=== PATIENT | female | born 1985 | race Caucasian/White ===

== ENCOUNTER 2018-09-01 18:52 | Emergency (ER) | payer BC, SELFPAY ==
[2018-09-01 18:53] VITALS: BP 133/71; PULSE 109; RESP 15; TEMP 36.9; O2SAT 98; BMI 26.5
--- NOTE | 2018-09-01 19:24 | EKG12_ITS ---
Test Reason : WEAKNESS Blood Pressure : / mmHG Vent. Rate : 088 BPM Atrial Rate : 088 BPM P-R Int : 136 ms QRS Dur : 100 ms QT Int : 338 ms P-R-T Axes : 058 046 038 degrees QTc Int : 408 ms Normal sinus rhythm Incomplete right bundle branch block Borderline ECG Confirmed by DAWN POP, TIGRE ([id number]), editorial director NICHOLAS ALCANTARA ([id number]) on 09/04/2018 1:31:48 PM Referred By: GISELA Confirmed By:TIGRE SEYMOUR MD
--- NOTE | 2018-09-01 19:26 | ED.VISSUMM ---
- ER Visit Summary Date of Service: 09/01/18 Chief Complaint: Dizziness and lightheadedness History of Present Illness: The patient is a 33 F who presents for 3 weeks of dizziness and lightheadedness, gradually worsening. Patient states that she feels more dizzy and lightheaded during the day then she feels normal. She has had increased fatigue during the days despite sleeping all night. She is feeling diffuse leg and arm weakness today and has been having hot flushes although she normally is cold natured. She also noted bruising on her right leg moving all the way up to the hip. She is on iron and vitamin D supplementation. Today she is having left shoulder pain. She is had a tubal ligation and denies . She is currently being worked up for POTS but states the symptoms are not consistent with her prior symptoms where she would have near syncope. She denies any other medical problems. She denies any history of thyroid disorder. She denies being on a natural herbal supplements. Physical Examination: Vital signs: afebrile, hemodynamically stable, no hypoxia on room air General: well nourished, well developed, in no distress Skin: warm, dry, no rash, no pallor, scattered bruises on the lateral right lower leg, one on the calf, a few on the lateral thigh and one near the hip. HEENT: normocephalic and atraumatic; PERRL, EOMI, moist mucous membranes, neck is supple, no lymphadenopathy Cardiovascular: regular rate and rhythm without murmurs, no peripheral edema, 2+ pulses all distal extremities Respiratory: No increased work of breathing, lungs are clear to auscultation bilaterally, no rales, rhonchi or wheezing Abdominal: Abdomen is soft, nontender with normoactive bowel sounds, no guarding or rebound, no masses MSK: Moves all extremities, no deformities, normal strength Neuro: Awake and alert, oriented ?4. No facial droop, sensation and motor function intact and symmetric Test Results: Abnormal Lab Results 09/01/18 09/01/18 09/01/18 19:35 19:35 19:35 WBC 8.3 RBC 4.83 Hgb 14.6 Hct 43.2 MCV 89.4 MCH 30.2 MCHC 33.8 RDW 13.2 RDW Differential 43.4 Plt Count 211 MPV 10.3 Immature Gran % (Auto) 0.100 Neut % (Auto) 71.2 H Lymph % (Auto) 21.4 [place] % (Auto) 6.4 Eos % (Auto) 0.7 Baso % (Auto) 0.2 Absolute Neuts (auto) 5.9 Absolute Lymphs (auto) 1.78 Total Counted Not Reportable Sodium 137 Potassium 3.5 Chloride 105 Carbon Dioxide 29.0 Anion Gap 3 L BUN 10 Creatinine 0.79 Estim Creat Clear Calc 91.99 Est GFR (MDRD) Af Amer 109 Est GFR (MDRD) Non-Af 90 BUN/Creatinine Ratio 12.7 Glucose 100 Calcium 9.1 Total Bilirubin 0.40 AST 16 ALT 24 Alkaline Phosphatase 70 Total Protein 7.9 Albumin 4.2 Globulin 3.7 Albumin/Globulin Ratio 1.1 TSH 1.29 Serum , Qual NEGATIVE Monoscreen 09/01/18 19:35 WBC RBC Hgb Hct MCV MCH MCHC RDW RDW Differential Plt Count MPV Immature Gran % (Auto) Neut % (Auto) Lymph % (Auto) [place] % (Auto) Eos % (Auto) Baso % (Auto) Absolute Neuts (auto) Absolute Lymphs (auto) Total Counted Sodium Potassium Chloride Carbon Dioxide Anion Gap BUN Creatinine Estim Creat Clear Calc Est GFR (MDRD) Af Amer Est GFR (MDRD) Non-Af BUN/Creatinine Ratio Glucose Calcium Total Bilirubin AST ALT Alkaline Phosphatase Total Protein Albumin Globulin Albumin/Globulin Ratio TSH Serum , Qual Monoscreen Negative Medications Given Discontinued Medications Sodium Chloride () 1,000 mls @ 1,000 mls/hr IV .Q1H ONE Stop: 09/01/18 20:23 Last Admin: 09/01/18 19:50 Dose: 1,000 mls/hr Documented by: [facility] Emergency Department Course and Treatment: Patient presents with a broad constellation of symptoms, mainly involving fatigue, weakness and dizziness. Work-up was performed to evaluate for any obvious underlying causes. EKG showed a sinus rhythm no ischemic changes or ectopy. CBC showed no significant leukocytosis or anemia. CMP showed normal hepatic, renal and electrolytes. Monospot was checked and was negative. negative. TSH was within normal limits. No findings on patient's work-up to indicate an emergent cause of her symptoms at this time. Patient is hemodynamically stable and afebrile. She received fluids in the emergency department and felt somewhat better afterwards. She is to follow-up with her primary care doctor for further work-up of her multiple symptoms. Treatment Plan: [] Disposition: [] Impression: Fatigue of unknown cause, dizziness of unknown cause This note was generated with [employer] dictation software. It may contain incorrect words, spelling, and punctuation that were not noted in review of the chart prior to signing ED Disposition - Plan for ED Patient: Disposition: Home or Assisted Living Instructions: DIZZINESS, Unk Cause, WEAKNESS, Unk Cause Referrals: Catie Elmore, [Primary Care Provider] - 3-5 Days Additional Instructions: Drink plenty of fluids to stay well-hydrated. Please follow-up with your doctor to continue your work-up for POTS and for another evaluation of the symptoms you are having today. If you have any worsening of your condition or any new concerning symptoms, please return immediately to the emergency department for another evaluation.
[2018-09-01 19:43] LABS: Absolute Lymphocyte Count 1.78 X10^3/ul (0.83-4.51); Absolute Neutrophil Count 5.9 X10^3/uL (2.0-7.7); Basophil# 0.02 X10^3/uL; Basophil% 0.2 % (0-1); Eosinophil# 0.06 X10^3/uL; Eosinophils% 0.7 % (0-5); Hematocrit 43.2 % (37-47); Hemoglobin 14.6 g/dl (12.0-15.0); Lymphocyte # 1.78 X10^3/ul (4.0); Lymphocyte % 21.4 % (19-41); Mean Corp Hgb Conc 33.8 g/gl (32-36); Mean Corpuscular Hgb 30.2 pg (27.0-32.0); Mean Corpuscular Volume 89.4 fL (81-99); Mean Platelet Vol. 10.3 fl (6.2-12.0); Monocyte# 0.53 X10^3/uL; Monocyte% 6.4 % (0-10); Neutrophil # 5.91 X10^3/uL (2.7-7.7); Neutrophil % 71.2 % (47-70); POSITIVE COUNT NO; POSITIVE DIFFERENTIAL NO; POSITIVE MORPHOLOGY NO; Platelet Count 211 K/mm3 (150-450); RBC Distribution Width CV 13.2 % (11.6-14.6); RBC Distribution Width SD 43.4 fl (35.1-43.9); Red Blood Count 4.83 M/mm3 (4.2-5.4); White Blood Count 8.3 K/mm3 (4.4-11.0)
[2018-09-01 19:50] VITALS: BP 111/64; BP 113/68; BP 119/70; PULSE 87; PULSE 91
[2018-09-01] MEDS: 0.9% Normal Saline 1,000 ML 1000 ML IV (19:50)
[2018-09-01 20:00] LABS: Internal QC Validated? YES +Cl - CLEAR BKGD; Monotest Negative (Negative)
[2018-09-01 20:01] LABS: Internal QC Validated? YES +Cl - CLEAR BKGD; Pregnancy, Serum, hCG Quali. NEGATIVE Negative
[2018-09-01 20:07] LABS: ALB/GLOB Ratio 1.1 RATIO (0.9-2.4); AST(SGOT) 16 U/L (15-37); Alanine Aminotransfer ALT/SGPT 24 U/L (13-56); Albumin, Serum 4.2 g/dL (3.2-5.0); Alkaline Phosphatase 70 U/L (45-117); Anion Gap 3 (5-15); BUN 10 mg/dL (7-18); BUN/Creat Ratio 12.7 RATIO (10-20); Calcium,Total 9.1 mg/dL (8.5-10.1); Chloride 105 mmol/L (98-107); Creatinine, Serum 0.79 mg/dL (0.55-1.02); EST Glomerular Filtration Rate 90 mL/min (>60); Est Glom Filt Rate - Afr Amer 109 mL/min (>60); Estimated Creatinine Clearance 91.99 ml/min; Globulin 3.7 g/dL (2.2-4.2); Glucose 100 mg/dL (74-106); Potassium 3.5 mmol/L (3.5-5.1); Protein, Total 7.9 g/dL (6.4-8.2); Sodium Level 137 mmol/L (136-145); Thyroid Stim Hormone (TSH) 1.29 uIU/mL (0.358-3.74)
[2018-09-01 21:38] VITALS: BP 124/71; PULSE 86; RESP 16; O2SAT 100
--- NOTE | 2018-09-01 21:39 | ED.RN ---
THIS NURSE REVIEWED D/C INSTRUCTIONS WITH PT. PT VERBALIZED UNDERSTANDING OF INSTRUCTIONS. IV D/C. IV CATHETER INTACT. PT TOLERATED WELL. PT DENIES FURTHER NEEDS OR QUESTIONS AT THIS TIME.
== END 2018-09-01 21:40 | disposition home or self-care (01) ==
PROVIDERS: Emergency Provider Emergency Medicine; Family Provider Internal Medicine; PCP Internal Medicine
DX: R42 Dizziness and giddiness (principal); R53.83 Other fatigue
CPT/HCPCS: 80053; 84443; 84703; 85025; 86308; 93005; 96360; 99284; J7030; A4216

== ENCOUNTER 2019-04-12 22:07 | Emergency (ER) | payer BC, SELFPAY ==
[2019-04-12 22:08] VITALS: BP 125/74; PULSE 68; RESP 16; TEMP 36.6; O2SAT 98; BMI 26.2
[2019-04-12 22:25] VITALS: BP 113/74; PULSE 86; RESP 16; O2SAT 98
[2019-04-12 22:27] VITALS: O2SAT 98
--- NOTE | 2019-04-12 22:51 | EKG12_ITS ---
Test Reason : SOB Blood Pressure : / mmHG Vent. Rate : 081 BPM Atrial Rate : 081 BPM P-R Int : 134 ms QRS Dur : 102 ms QT Int : 342 ms P-R-T Axes : 056 048 032 degrees QTc Int : 397 ms Normal sinus rhythm Normal ECG Confirmed by IGLESIA POP, SEEMA ([id number]), loan expeditor CECY SANCHEZ ([id number] on 04/16/2019 10:32:21 AM Referred By: SATISH Confirmed By:PAUL PAREKH MD
--- NOTE | 2019-04-12 22:51 | RAD_ITS ---
STUDY: X-RAY CHEST REASON FOR EXAM: Female, 33 years old. C/o heart racing and chest discomfort since Tuesday TECHNIQUE: PA and lateral views of the chest. COMPARISON: None. FINDINGS: The lungs are clear and expanded. There is no demonstrated pleural abnormality. Normal size heart. Normal mediastinum and shandra. Normal visualized pulmonary arteries. Normal visualized aortic arch and descending thoracic aorta. Normal visualized thoracic spine. Normal visualized ribs, clavicles, and shoulders. There is no demonstrated abnormality of the visualized soft tissue structures of the upper abdomen. RAD/Chest PA and Lateral IMPRESSION: Normal x-ray examination of the chest. Electronically Signed: Jasmyne Ingram MD at 0:05 EST , Service support ,
[2019-04-12 23:51] LABS: Absolute Lymphocyte Count 2.26 X10^3/uL (0.83-4.51); Absolute Neutrophil Count 4.9 X10^3/uL (2.0-7.7); Basophil# 0.04 X10^3/uL; Basophil% 0.5 % (0-1); Eosinophil# 0.13 X10^3/uL; Eosinophils% 1.6 % (0-5); Hematocrit 40.8 % (37-47); Hemoglobin 13.6 g/dL (12.0-15.0); Lymphocyte # 2.26 X10^3/ul (4.0); Lymphocyte % 28.3 % (19-41); Mean Corp Hgb Conc 33.3 g/dL (32-36); Mean Corpuscular Hgb 30.4 pg (27.0-32.0); Mean Corpuscular Volume 91.1 fL (81-99); Mean Platelet Vol. 10.4 fl (6.2-12.0); Monocyte# 0.62 X10^3/uL; Monocyte% 7.8 % (0-10); NRBC Flagged by Analyzer 0 % (0-5); Neutrophil # 4.91 X10^3/uL (2.7-7.7); Neutrophil % 61.5 % (47-70); Platelet Count 183 K/mm3 (150-450); RBC Distribution Width CV 12.2 % (11.6-14.6); RBC Distribution Width SD 40.2 fl (35.1-43.9); Red Blood Count 4.48 M/mm3 (4.2-5.4)
[2019-04-13] LABS: Internal QC Validated? YES +Cl - CLEAR BKGD; Pregnancy, Serum, hCG Quali. NEGATIVE Negative
[2019-04-13 00:06] LABS: D-Dimer Quantitative (DVT/PE) < 0.27 FEU/ug/m (0.27-0.49)
[2019-04-13 00:13] VITALS: BP 113/69; PULSE 79; RESP 15; O2SAT 98
--- NOTE | 2019-04-13 00:22 | ED.VISSUMM ---
- ER Visit Summary Date of Service: 04/13/19 Chief Complaint: Tachycardia, shortness of breath, palpitations] History of Present Illness: The patient is a 33 F [presents to the emergency department with complaint of a racing heart and some shortness of breath that is been ongoing for the last 3 days. Patient states that she is noted heart rates as high as 168 today. Heart rate was in the 140s yesterday. Patient states that her chest, feels sore and scratchy like when he had a cold. Patient has tried antacids to relieve the discomfort without success. Today she is felt very fatigued. Patient states that she had similar episodes of tachycardia 5 or 6 years ago and was evaluated by fixed wing aircraft flight mechanic at that time and it was thought that she may have SVT. Patient states that when she gets them fast heart rates she splashes cold water on her face and takes deep breaths. The tachycardia typically lasts only a short time. Patient has never had any EPS type studies. She states that she did wear a Holter monitor years ago but it was not able to capture any abnormalities. Patient had an echo 5 years ago that was normal. No thyroid history.] Physical Examination: [HEENT-PERRLA, EOMI. Cranial nerves II through XII grossly intact. TMs clear. Mucous membranes moist. No adenopathy. Cardiovascular-regular rate and rhythm without murmur or ectopy Lungs-clear to auscultation, chest wall stable without crepitus or subcu emphysema Abdomen-normoactive bowel sounds, soft, nontender, no rebound or rigidity, no peritoneal signs. Extremities-intact ?4, normal range of motion, normal pulses, atraumatic] Test Results: [EKG obtained arrival shows sinus rhythm with a ventricular rate of 81 bpm with no acute ST segment changes. CBC with differential was normal. D-dimer was less than 0.27. hCG was negative.] Chemistries were unremarkable. TSH was slightly elevated 4.38. Emergency Department Course and Treatment: [Patient will have a Holter monitor placed. Patient was observed on cardiac cath lab technologist here and had no dysrhythmia issues.] Treatment Plan: [Follow-up with cardiology vehicle fuel systems converter in 3 to 5 days. Patient will have a 48-hour Holter monitor placed.] Disposition: [Discharged home in stable condition] Impression: [Tachycardia by history Palpitations] This note was generated with [employer] software. It may contain incorrect words, spelling, and punctuation that were not noted in review of the chart prior to signing ED Disposition - Plan for ED Patient: Disposition: Acute Care Hospital [facility] Referrals: Catie Elmore DO [Primary Care Provider] -
[2019-04-13 00:37] LABS: Anion Gap 2 (5-15); BUN 7 mg/dL (7-18); Calcium,Total 9.2 mg/dL (8.5-10.1); Chloride 109 mmol/L (98-107); Creatinine, Serum 0.77 mg/dL (0.55-1.02); EST Glomerular Filtration Rate 91 mL/min (>60); Est Glom Filt Rate - Afr Amer 110 mL/min (>60); Estimated Creatinine Clearance 94.38 ml/min; Glucose 83 mg/dL (74-106); Potassium 3.6 mmol/L (3.5-5.1); Sodium Level 141 mmol/L (136-145); Thyroid Stim Hormone (TSH) 4.38 uIU/mL (0.358-3.74)
--- NOTE | 2019-04-13 00:46 | DCINST.ED_ITS ---
ED Disposition - Plan for ED Patient: Disposition: Acute Care Hospital [facility] Instructions: Palpitations, Pat (P.A.T.) Referrals: Catie Elmore DO [Primary Care Provider] - Soy Wilcox MD [STAFF PHYSICIAN] - 3-5 Days
--- NOTE | 2019-04-13 00:46 | ED.DEP ---
ED Disposition - Plan for ED Patient: Disposition: Acute Care Hospital [facility] Instructions: Palpitations, Pat (P.A.T.) Referrals: Catie Elmore DO [Primary Care Provider] - Soy Wilcox MD [STAFF PHYSICIAN] - 3-5 Days
[2019-04-13 01:08] VITALS: BP 115/75; PULSE 86; RESP 15
== END 2019-04-13 01:09 | disposition short-term general hospital (02) ==
PROVIDERS: Emergency Provider Emergency Medicine; PCP Internal Medicine
DX: R00.0 Tachycardia, unspecified (principal); R00.2 Palpitations
CPT/HCPCS: 71046; 80048; 84443; 84484; 84703; 85025; 85379; 93005; 99284

== ENCOUNTER → 2019-04-13 | Outpatient (CLI) | payer BC, SELFPAY ==
[2019-04-12 22:08] VITALS: BMI 26.2
== END | disposition home or self-care (01) ==
LOC: ED 00:56 → PSN 01:08
PROVIDERS: PCP Internal Medicine; Referring Provider Emergency Medicine; Visit Provider Emergency Medicine
DX: R00.2 Palpitations (principal)
CPT/HCPCS: 93225; 93226

== ENCOUNTER → 2019-05-09 10:08 | Outpatient (CLI) | payer BC, SELFPAY ==
[2019-05-09 09:29] VITALS: BMI 25.9
[2019-05-09 11:00] LABS: Ferritin 6 ng/mL (8-252); Iron 79 ug/dL (50-170); Iron Binding Capacity,Total 318 ug/dL (250-450); PERCENT IRON SATURATION 24.8 % (15.0-55.0)
== END ==
PROVIDERS: PCP Internal Medicine; Referring Provider Internal Medicine Cardiovascular Disease; Visit Provider Internal Medicine Cardiovascular Disease
DX: D64.9 Anemia, unspecified (principal)
CPT/HCPCS: 36415; 82728; 83540; 83550

== ENCOUNTER 2020-09-10 17:31 | Emergency (ER) | payer BC, SELFPAY ==
[2019-05-09 09:29] VITALS: BMI 25.9
[2020-09-10 17:31] VITALS: BP 119/66; PULSE 91; RESP 16; TEMP 36.6; O2SAT 98; BMI 27.3
--- NOTE | 2020-09-10 18:25 | US_ITS ---
HISTORY: rt calf pain x 2 days EXAMINATION: US Venous Duplex LE Unilat / Limited: TECHNIQUE: Fihser scale, pulse wave, and color flow Doppler imaging was performed of the lower extremity venous system. The right greater saphenous, common femoral, femoral, popliteal, peroneal and posterior tibial veins were interrogated. COMPARISON: None FINDINGS: # of images incl. paperwork: 17 There is normal compression, augmentation, and color flow signal throughout the visualized deep lower extremity veins. US/Venous Duplex Imag/Limited/Uni IMPRESSION: No sonographic evidence of deep venous thrombosis. at 1935 Reported and signed by: Cy Ross MD Electronically Signed: Cy Ross MD at 19:34 EDT Tel , Service support ,
--- NOTE | 2020-09-10 18:47 | EX.ED.DYSGE1 ---
HPI History of Present Illness Chief Complaint: Lower Extremity Injury Narrative Narrative: Patient presents with 1 day history of right calf pain. She has no chest pain or shortness of breath. No recent fever or chills. No recent travel history. She is denying any kind of trauma. No other DVT or PE risk factors. [facility] Medical History (Updated 09/10/20 @ 18:15 by Marci Busch) History of paroxysmal supraventricular tachycardia Home Medications NK 09/10/20 [History Last Taken Unknown] Allergy/AdvReac Type Severity Reaction Status Date / Time Penicillins [PCN] Allergy Anaphylaxis Verified 09/10/20 17:31 Family History Father Diabetes Essential (primary) hypertension Grandfather COPD (chronic obstructive pulmonary disease) Brother Hypertension Surgical History H/O section H/O dilation and curettage Hx of tubal ligation Social History (Updated 05/09/19 @ 10:[address] Soy Wilcox MD) Smoking Status: Never smoker ROS ROS ED ROS Narrative Past medical history: none Medications: Reviewed Social history: Noncontributory Review of systems: Musculoskeletal: Right calf pain as in HPI Cardiovascular: No chest pain Respiratory: No shortness of breath Skin: No abrasions or lacerations Neurological: No weakness or paresthesias Hematologic: No easy bleeding or easy bruising EXAM Physical Exam Narrative Exam Narrative: Physical exam General: Patient does not appear in significant distress . Head: Normocephalic, Atraumatic Neck: No C-spine tenderness Cardiovascular: Normal distal pulses Respiratory: Clear lungs bilaterally Back: Nontender, Normal Inspection. Extremities: Some calf pain but negative Homans. No lower extremity edema. No signs of cellulitis. Skin: No abrasions, no lacerations Neurological: Normal strength and sensation Const Vital Signs: 09/10/20 17:31 Temperature 97.9 F Temperature Source Temporal Pulse Rate 91 Respiratory Rate 16 Blood Pressure 119/66 Blood Pressure Mean 83 Pulse Ox 98 Oxygen Delivery Method Room Air MDM MDM MDM Narrative Medical decision making narrative: Venous ultrasound is negative. Patient will be discharged with reassurance. Discharge Plan Triage Chief Complaint: Lower Extremity Injury ED Provider: Joon Nicole Dx/Rx/DC Orders Prescriptions: No Action NK RF: 0 Primary Care Provider: Catie Elmore
== END 2020-09-10 19:14 | disposition home or self-care (01) ==
PROVIDERS: Emergency Provider Emergency Medicine; PCP Internal Medicine
DX: S89.91XA Unspecified injury of right lower leg, initial encounter (principal); M79.661 Pain in right lower leg; X58.XXXA Exposure to other specified factors, initial encounter; Y93.89 Activity, other specified; Y92.89 Other specified places as the place of occurrence of the external cause; Y99.8 Other external cause status
CPT/HCPCS: 93971; 99282

== ENCOUNTER 2024-04-26 06:49 | Emergency (ER) | payer BC, SELFPAY ==
[2024-04-26 06:50] VITALS: BP 109/70; PULSE 111; RESP 10; TEMP 36.8; O2SAT 99; BMI 29.9
--- NOTE | 2024-04-26 07:13 | US_ITS ---
PROCEDURE: ULTRASOUND GALLBLADDER REASON FOR EXAM: PAIN. COMPARISON: None FINDINGS: Liver: 14.9 cm sagittally. Hyperechogenic parenchyma. Homogeneous texture. Gallbladder: No stones, sludge, wall thickening or tenderness. Common bile duct: Normal measuring 0.40 cm.. Pancreas: Visualized portions are sonographically unremarkable. Right kidney: 10.9 x 5.6 x 4.5 cm. Renal cortex measures 1.2 cm in thickness. No masses are identified. US/Gallbladder IMPRESSION: 1. Steatosis. 2. Otherwise normal right upper quadrant ultrasound. Reading Location: [facility]
[2024-04-26] MEDS: Ondansetron 4 MG/2 ML Vial IV (07:28)
[2024-04-26] MEDS: Ketorolac 15 MG/ML Vial IV (07:29)
[2024-04-26 07:38] LABS: Absolute Lymphocyte Count 1.31 X10^3/uL (0.83-4.51); Absolute Neutrophil Count 4.2 X10^3/uL (2.0-7.7); Basophil# 0.05 X10^3/uL; Basophil% 0.8 % (0-1); Eosinophil# 0.19 X10^3/uL; Eosinophils% 2.9 % (0-5); Hematocrit 41.4 % (37-47); Hemoglobin 14.4 g/dL (12.0-15.0); Lymphocyte # 1.31 X10^3/ul (0.83-4.51); Lymphocyte % 19.9 % (19-41); Mean Corp Hgb Conc 34.8 g/dL (32-36); Mean Platelet Vol. 10.6 fl (6.2-12.0); Monocyte% 12.1 % (0-10); NRBC Flagged by Analyzer 0 % (0-5); Neutrophil # 4.21 X10^3/uL (2.7-7.7); Neutrophil % 63.8 % (47-70); Platelet Count 166 K/mm3 (150-450); RBC Distribution Width SD 42.3 fl (35.1-43.9); Red Blood Count 4.65 M/mm3 (4.2-5.4); White Blood Count 6.6 K/mm3 (4.4-11.0)
--- NOTE | 2024-04-26 07:40 | EX.ED.DYSGE1 ---
HPI History of Present Illness Chief Complaint: Chest Other Detail of Chief Complaint: Pain right upper quadrant lower right chest Informant: patient and spouse/S.O. Onset/Context/Timing Onset: Today (Awoke patient from sleep at approximately 0400) Context: Sudden Onset Timing: Continuous and Waxes and wanes Quality: Pain right upper quadrant radiating through to back Location: Right upper quadrant Current Severity: Moderate Maximum Severity: Severe Worsened by: Nothing Relieved by: Nothing Associated Symptoms Associated Symptoms: Nausea Narrative Narrative: Patient is a 38-year-old female. She was awakened from sleep at 0400. She had chicken broccoli for dinner. She states there is no skin on the chicken and did not use any creamy sauce. There is maternal family history of cholelithiasis. She denies respiratory symptoms. She denies urologic symptoms. There is no history of renal ureterolithiasis. Patient states initially she felt bloated. Over the last week or 2 she has had a abnormal sensation in the epigastric area. There is no history of GERD, peptic ulcer disease or hiatal hernia. Patient requested no opiate analgesics. Prior similar symptoms: No Recent Illness/Hospitalization: No PFSH PFSH Medical History History of paroxysmal supraventricular tachycardia Home Medications ?Medication ?Instructions ?Recorded ?Last Taken ?Type NK 09/10/20 Unknown History Allergy/AdvReac Type Severity Reaction Status Date / Time Penicillins (PCN) Allergy Anaphylaxis Verified 04/26/24 06:49 Family History Father Diabetes Essential (primary) hypertension Grandfather COPD (chronic obstructive pulmonary disease) Brother Hypertension Surgical History H/O dilation and curettage H/O section Hx of tubal ligation Social History (Updated 04/26/24 @ 07:[address] Cody Jessica MD) household members: spouse and children Smoking Status: Never smoker ROS ROS ED Constitutional Constitutional ED: Denies chills, fever(s), subjective or sweats Eyes Eyes: Denies blurry vision or change in vision ENT ENT ED: Denies rhinorrhea or sore throat Cardiovascular Cardiovascular: Denies chest pain or palpitations Respiratory/Chest Respiratory/Chest: Denies cough, dyspnea or dyspnea on exertion Gastrointestinal Gastrointestinal: Reports abdominal pain and nausea; Denies constipation, diarrhea, melena or vomiting Genitourinary Genitourinary ED: Denies dysuria, hematuria or urinary frequency Musculoskeletal Musculoskeletal: Reports back pain Integumentary Denies rash EXAM Physical Exam Const Vital Signs: 04/26/24 06:50 04/26/24 06:50 04/26/24 08:44 Temperature 98.2 F Temperature Source Oral Pulse Rate 111 H 84 Respiratory Rate 10 L 15 Respiratory Effort Normal Blood Pressure 109/70 117/70 Blood Pressure Mean 83 85 Pulse Ox 99 100 Oxygen Delivery Method Room Air Room Air Positive well nourished Constitutional Narrative: Patient appears uncomfortable. General Appearance ED: Negative for pallor HEENT Reports moist mucous membranes HEENT Narrative: Head is atraumatic normocephalic. Ears normal. Nares patent Eyes EOMs intact bilaterally General Eye ED: Negative for pale conjunctiva or scleral icterus Neck no lymphadenopathy, supple and no JVD Chest Wall inspection of chest normal and palpation of chest normal Resp normal respiratory effort and clear to auscultation bilaterally Cardio regular rate, regular rhythm, S1 normal heart sound, S2 normal heart sound and no murmurs GI non-distended and no masses; Negative for normal to inspection, nondistended, normoactive bowel sounds, non-tender or hepatosplenomegaly GI Narrative: There is mild tenderness to epigastric. Patient has a clinical Flood sign. Bowel sounds are diminished. There is no tympany with percussion. There is no dermatologic lesions noted. Back/Spine no CVA tenderness Extremity normal to inspection Neuro oriented x3, CN's II-XII intact bilaterally and no sensory deficits noted Sensorium / Orientation: alert Psych mental status grossly normal Skin no rashes or lesions noted, no wounds and skin turgor normal General Skin Exam: elasticity normal; Negative for jaundice or pallor MDM MDM MDM Narrative Medical decision making narrative: Differential diagnosis is abdominal pain unknown etiology, biliary colic, cholecystitis, doubt pancreatitis. Unusual presentation for lower lobe pneumonia. Unusual presentation for renal/ureteral lithiasis. History & Record Review Additional record(s) reviewed:: Prior ED visit (Patient seen September 10, 2020 for calf pain. Patient seen April 2019 for PSVT.) and Prior labs Lab Data Attestation: I reviewed the patient's lab results. Lab results narrative: CBC is unremarkable. Basic metabolic panel is normal. Liver enzymes normal. Lipase is normal. Labs: Laboratory Results - last 24 hr 04/26/24 07:20 WBC 6.6 RBC 4.65 Hgb 14.4 Hct 41.4 MCV 89.0 MCH 31.0 MCHC 34.8 RDW Std Deviation 42.3 RDW Coeff of Ana 13.0 Plt Count 166 MPV 10.6 Immature Gran % (Auto) 0.500 Neut % (Auto) 63.8 Lymph % (Auto) 19.9 [place] % (Auto) 12.1 H Eos % (Auto) 2.9 Baso % (Auto) 0.8 Absolute Neuts (auto) 4.2 Absolute Lymphs (auto) 1.31 Nucleated RBC % 0 Sodium 139 Potassium 3.7 Chloride 107 Carbon Dioxide 26.0 Anion Gap 6 BUN 16 Creatinine 0.86 Estim Creat Clear Calc 94.45 Est GFR (MDRD) Af Amer 96 Est GFR (MDRD) Non-Af 79 BUN/Creatinine Ratio 18.7 Glucose 92 Calcium 8.8 Total Bilirubin 0.60 AST 19 ALT 33 Alkaline Phosphatase 66 Total Protein 7.4 Albumin 3.7 Globulin 3.7 Albumin/Globulin Ratio 1.0 Lipase 34 L Radiography Diagnostic Testing: Clinical Impression(s) from Imaging Studies Gallbladder Ultrasound 04/26/24 07:13 IMPRESSION: 1. Steatosis. 2. Otherwise normal right upper quadrant ultrasound. Reading Location: [facility] Ultrasound report was read. The ultrasound was reviewed by me. I did not see any abnormality of the gallbladder and did not appreciate any cholelithiasis. Kidney appeared normal as well. Treatment and Re-Evaluation :: Patient was in the radiology suite when I went to reassess. states her pain improved significantly with the IV ketorolac. Discharge Plan Triage Chief Complaint: Chest Other ED Provider: Agustina Jessicao Dx/Rx/DC Orders Clinical Impression: Right upper quadrant pain, Tachycardia Instructions: ED Pain, Acute, Uncertain Cause Prescriptions: No Action NK Primary Care Provider: Yung Dahl Referrals: Yung Dahl DO [Primary Care Provider] - 1 Week Activity Restrictions/Additional Instructions: If you notice you have intolerance to greasy or fried foods recommendations to follow-up with Dr. Dahl for patient HIDA scan You may take either 4 ibuprofen tablets every 8 hours or 2 Aleve tablets every 12 hours for the next 2 to 3 days for pain control. Print Language: Upper Sorbian Disposition Disposition: Home, Self Care
[2024-04-26 07:54] LABS: AST(SGOT) 19 U/L (15-37); Alanine Aminotransfer ALT/SGPT 33 U/L (13-56); Albumin, Serum 3.7 g/dL (3.2-5.0); Alkaline Phosphatase 66 U/L (45-117); Anion Gap 6 (5-15); BUN 16 mg/dL (7-18); BUN/Creat Ratio 18.7 RATIO (10-20); Calcium,Total 8.8 mg/dL (8.5-10.1); Chloride 107 mmol/L (98-107); Creatinine, Serum 0.86 mg/dL (0.55-1.02); EST Glomerular Filtration Rate 79 mL/min (>60); Est Glom Filt Rate - Afr Amer 96 mL/min (>60); Estimated Creatinine Clearance 94.45 ml/min; Globulin 3.7 g/dL (2.2-4.2); Glucose 92 mg/dL (74-106); Lipase 34 U/L (73-393); Potassium 3.7 mmol/L (3.5-5.1); Protein, Total 7.4 g/dL (6.4-8.2); Sodium Level 139 mmol/L (136-145)
[2024-04-26 08:44] VITALS: BP 117/70; PULSE 84; RESP 15; O2SAT 100
[2024-04-26 08:56] VITALS: BP 112/70; PULSE 89; RESP 19; TEMP 36.6; O2SAT 98
== END 2024-04-26 09:02 | disposition home or self-care (01) ==
PROVIDERS: Emergency Provider Emergency Medicine; PCP Student in an Organized Health Care Education/Training Program; Visit Provider Emergency Medicine
DX: R10.11 Right upper quadrant pain (principal); R00.0 Tachycardia, unspecified; R11.0 Nausea; Z88.0 Allergy status to penicillin
CPT/HCPCS: 76705; 80053; 83690; 85025; 96374; 96375; 99283; A4216; J2405